=== PATIENT | male | born 1965 | race Caucasian/White ===

== ENCOUNTER 2016-09-23 20:50 | Emergency (ER) | payer OTHER ==
--- NOTE | 2016-09-23 21:09 | Emergency Department Record ---
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 The past 2 shifts he has taken off due to profuse diaphoresis, shaking chills and fevers with total body aching head to toe, and vertigo when he changes position. Today he noticed a reddened warm patch on the back of his dominant right hand which is tender. He denies any bites or stings to that area that he knows of, and has no discomfort up into his upper arm or axilla. He is an occasional smoker, and takes Metformin for type 2 diabetes, colchicine for gout. Onset/Timin -: Days(s) Location: Right, Hand History of Same: No Quality: Aching Consistency: Constant, Getting worse Improves with: Nothing Worsens with: Nothing - Related Data Home Medications Medication Instructions Recorded Confirmed Last Taken Colchicine [Colchicine] 1 tab PO ASDIR 09/23/16 09/23/16 Unknown Metformin HCl [Metformin HCl ER] 1,000 mg PO DAILY 09/23/16 09/23/16 Unknown Previous Rx's Medication Instructions Recorded Cephalexin [Keflex] 500 mg PO QID #40 cap 09/24/16 Allergies Allergy/AdvReac Type Severity Reaction Status Date / Time No Known Drug Allergies Allergy Verified 01/18/15 20:19 Travel Screening - Travel/Exposure Within Last 30 Days Have you traveled within the last 30 days?: No Review of Systems Reviewed: No additional complaints except as noted below Constitutional: Reports: As per HPI. Denies: Chills, Fever, Malaise, Night sweats, Weakness, Weight change Eyes: Reports: As per HPI. Denies: Eye discharge, Eye pain, Photophobia, Vision change ENT: Reports: As per HPI. Denies: Congestion, Dental pain, Ear pain, Epistaxis , Hearing loss, Throat pain Respiratory: Reports: As per HPI. Denies: Cough, Dyspnea, Hemoptysis, Stridor, Wheezes Cardiovascular: Reports: As per HPI. Denies: Arrhythmia, Chest pain, Dyspnea on exertion, Edema, Murmurs, Orthopnea, Palpitations, Paroxysmal nocturnal dyspnea, Rheumatic Fever, Syncope Endocrine: Reports: As per HPI. Denies: Fatigue, Heat or cold intolerance, Polydipsia, Polyuria Gastrointestinal: Reports: As per HPI. Denies: Abdominal pain, Constipation, Diarrhea, Hematemesis, Hematochezia, Melena, Nausea, Vomiting Genitourinary: Reports: As per HPI. Denies: Dysuria, Frequency, Hematuria, Incontinence, Retention, Testicular pain, Testicular mass, Urgency Musculoskeletal: Reports: As per HPI. Denies: Arthralgia, Back pain, Gout, Joint swelling, Myalgia, Neck pain Skin: Reports: As per HPI. Denies: Bruising, Change in color, Change in hair/ nails, Lesions, Pruritus, Rash Neurological: Reports: As per HPI. Denies: Abnormal gait, Confusion, Headache, Numbness, Paresthesias, Seizure, Tingling, Tremors, Vertigo, Weakness Psychiatric: Reports: As per HPI. Denies: Anxiety, Auditory hallucinations, Depression, Homicidal thoughts, Suicidal thoughts, Visual hallucinations Hematological/Lymphatic: Reports: As per HPI. Denies: Anemia, Blood Clots, Easy bleeding, Easy bruising, Swollen glands Past Medical History - SOCIAL HISTORY Smoking Status: Current some day smoker Alcohol Use: None Drug Use: None - RESPIRATORY Hx Respiratory Disorders: No - CARDIOVASCULAR Hx Cardio Disorders: Yes Hx Cardiac Cath: Yes Hx Heart Attack: Yes (x2) - NEURO Hx Neuro Disorders: No - GI Hx GI Disorders: No - Hx Genitourinary Disorders: No - ENDOCRINE Hx Endocrine Disorders: Yes Hx Diabetes: Yes (DM2) - MUSCULOSKELETAL Hx Musculoskeletal Disorders: Yes Hx Gout: Yes (hx) - PSYCH Hx Psych Problems: No - HEMATOLOGY/ONCOLOGY Hx Hematology/Oncology Disorders: No Family Medical History Any Significant Family History?: Yes Hx Cancer: Father *Cancer Comment: Leukemia Hx Diabetes: Mother, Brother/Sister Hx Heart Disease: Brother/Sister Hx Resp Disorders: Mother *Resp Comment: COPD Physical Exam - General General Appearance: Alert, Oriented x3, Cooperative, No acute distress - Head Head exam: Normal inspection - Eye Eye exam: Normal appearance, PERRL Pupils: Normal accommodation - ENT ENT exam: Normal exam, Mucous membranes moist, Normal external ear exam, Normal orophraynx, TM's normal bilaterally Ear exam: Normal external inspection. negative: External canal tenderness Nasal Exam: Normal inspection. negative: Discharge, Sinus tenderness Mouth exam: Normal external inspection, Tongue normal Teeth exam: Normal inspection. negative: Dental caries Throat exam: Normal inspection. negative: Tonsillar erythema, Tonsillar exudate - Neck Neck exam: Normal inspection, Full ROM. negative: Tenderness - Respiratory Respiratory exam: Normal lung sounds bilaterally. negative: Respiratory distress - Cardiovascular Cardiovascular Exam: Normal rhythm, Normal heart sounds, Tachycardia - GI/Abdominal GI/Abdominal exam: Soft, Normal bowel sounds. negative: Tenderness - Rectal Rectal exam: Deferred - exam: Deferred - Extremities Extremities exam: Normal inspection, Full ROM, Normal capillary refill. negative: Tenderness Image of Hand: 1 - erythema, warmth, tenderness to dorsal right hand, no proximal lymphangitis , no axillary lymph nodes palpable, no bite site or discrete lesions. - Back Back exam: Reports: Normal inspection, Full ROM. Denies: Muscle spasm, Rash noted, Tenderness - Neurological Neurological exam: Alert, Normal gait, Oriented X3, Reflexes normal - Psychiatric Psychiatric exam: Normal affect, Normal mood - Skin Skin exam: Dry, Intact, Normal color, Warm Course Vital Signs 09/23/16 20:56 Temperature 98.3 F Pulse Rate [ 110 H Pulse Ox Probe] Respiratory 20 Rate Blood Pressure 145/98 [Left Arm] Pulse Ox 96 - Reevaluation(s) Reevaluation #1: History obtained for cardiac risks when troponin returned 0.032. Patient states he had a heart attack in 2010, he smokes 2 cigarettes per day,, is a diabetic, type 2, has elevated cholesterol for which he does not take medication , and his FH is positive for a father who had multiple WI's in his 30's. He denies having any anterior chest pains this week, but does get left lateral rib "spasms" under his arm when at work and exerting himself, but not currently, and not today. 09/23/16 22:33 09/23/16 22:36 Reevaluation #2: Patient states he is feeling better. Fluids infused, antibiotics infused. Patient states he works two jobs of 12 hour night shifts and 8 hours days. He only sleeps on the weekends. He states its because he loves to work. Patient informed he will have repeat troponin drawn. 09/24/16 00:34 Medical Decision Making - Management Options MDM Management: No Additional Work-up Planned - Data Complexity MDM Data: Labs Ordered and/or Reviewed, X-Ray Ordered and/or Reviewed (CTA chest : No large central pulmonary emboli seen but small segmental subsegmental pulmonary emboli may bnot be detected with this exam. No acute cardiopulm findings. Mild bilateral hilar adenopathy. Old pulmonary granulomatous disease. Per [facility]. ), EKG Ordered and/or Reviewed (EKG: Sinus tach at 102, no acute abnormalities.) - Lab Data Result diagrams: 09/23/16 21:30 09/23/16 21:30 Disposition Disposition: Discharge Clinical Impression: Cellulitis of right hand excluding fingers and thumb Disposition: Home, Self-Care Instructions: Cellulitis (ED) Additional Instructions: Take oral antibiotics as directed until gone. No use of right hand until infection clears. Watch closely to see if redness moves outside the marked regions. If it does, return here for repeat IV antibiotics. Prescriptions: Cephalexin [Keflex] 500 mg PO QID #40 cap Forms: Patient Portal Access Quality - Quality Measures Quality Measures: N/A - Blood Pressure Screening Does Patient Have Any of the Following: No Blood Pressure Classification: Pre-Hypertensive BP Reading Systolic Measurement: 126 Diastolic Measurement: 68 Screening for High Blood Pressure: < Normal BP, F/U Not Required > [G8783]
[2016-09-23] MEDS ORDERED: 0.9 % SODIUM CHLORIDE 1,000 ML BAG IV ONE ×2 (21:19→22:38)
[2016-09-23 21:40] LABS: MEAN CORPUSCULAR HEMOGLOBIN 31.8 pg (27-33); MEAN CORPUSCULAR HGB CONC 35.7 g/dl (32-36); PLATELET COUNT 122 K/uL (130-400); RED BLOOD COUNT 4.72 M/uL (4.40-5.70); RED CELL DISTRIBUTION WIDTH 12.3 % (11.5-14.5); WHITE BLOOD COUNT W/O DIFF 2.7 K/uL (4.2-12.2)
[2016-09-23 21:54] LABS: LACTIC ACID 1.9 mmol/L (0.7-2.1)
[2016-09-23 21:56] LABS: INR 0.99; PROTHROMBIN TIME (PATIENT) 10.7 SECONDS (9.5-12.1)
[2016-09-23 21:57] LABS: D-DIMER 1.93 mg/L FEU (0-0.59)
[2016-09-23 22:12] LABS: ALB/GLOB RATIO 1.4 (1.1-1.8); BLOOD UREA NITROGEN 19 mg/dL (9-20); CREATININE 1.1 mg/dL (0.66-1.25); EST GLOMERULAR FILTRATION RATE > 60 ml/min; GLUCOSE,RANDOM 267 mg/dL (70-110); TOTAL PROTEIN 6.9 gm/dL (6.3-8.2)
[2016-09-23 22:13] LABS: ALKALINE PHOSPHATASE 64 U/L (38-126); ALT/SGPT 60 U/L (21-72); AST/SGOT 33 U/L (17-59)
[2016-09-23 22:14] LABS: TROPONIN I 0.032 ng/mL (0.00-0.034)
[2016-09-23] MEDS ORDERED: CEFAZOLIN 2 Gram 2 GM/50 ML BAG IVPB ONE (22:29)
[2016-09-23 23:17] LABS: URINE APPEARANCE CLEAR; URINE BILIRUBIN NEGATIVE (NEGATIVE); URINE BLOOD MODERATE (NEGATIVE); URINE COLOR YELLOW; URINE KETONE NEGATIVE (NEGATIVE); URINE LEUKOCYTE ESTERASE NEGATIVE (NEGATIVE); URINE NITRITE NEGATIVE (NEGATIVE); URINE PROTEIN NEGATIVE (NEGATIVE); URINE UROBILINOGEN 0.2 E.U./dL (0.20 - 1.00)
[2016-09-23 23:23] LABS: URINE GLUCOSE (UA) >=1000 mg/dL (NEGATIVE)
[2016-09-23 23:30] LABS: URINE AMORPHOUS SEDIMENT 1+; URINE EPITHELIAL CELLS 0 - 2 (FEW); URINE WBC 0 - 2 (0-2/hpf)
[2016-09-24] MEDS ORDERED: CEPHALEXIN 500 MG CAPSULE PO STA (02:43)
--- NOTE | 2016-09-24 12:33 | RADIOLOGY REPORT ---
EXAM: CHEST HISTORY: RIGHT HAND SWELLING NOTICED ON THE POSTERIOR SIDE OF THE HAND. VERTIGO, FEVER AND CHILLS. TECHNIQUE: Two views of the chest were obtained. Comparison: None. FINDINGS: The heart is not enlarged. No mediastinal mass. No infiltrate or vascular congestion. IMPRESSION: UNREMARKABLE CHEST EXAMINATION. JOB NUMBER: [id number] MTDD
--- NOTE | 2016-09-24 12:58 | CT ANGIOGRAM REPORT ---
EXAM: CTA OF THE CHEST HISTORY: ELEVATED D-DIMER, SWOLLEN HANDS, HISTORY OF DIABETES. TECHNIQUE: Contiguous axial images from the thoracic inlet to the upper abdomen were obtained after the uneventful intravenous administration of 78 ml of Omnipaque 350. Sagittal and coronal two dimensional MIP as well as 3D/MIP reformatted images were obtained for better anatomic delineation. Comparison: Chest x-ray 09/23/16. FINDINGS: There are two right middle lobe nodules measuring up to 4.5 mm in size. Plaque like nodule at the right lower lobe posteriorly measuring 4.7 mm. Additional right lower lobe nodule posteriorly measures 4 mm. At least two juxtapleural nodules in the left lower lobe measuring up to 4 mm. The heart is not enlarged and there is no pericardial effusion. No enlarged lymph nodes in the thorax. The pulmonary arteries are not optimally opacified. Allowing for this no obvious pulmonary embolism identified. No thoracic aortic aneurysm or thoracic aortic dissection. There are a few subcentimeter cysts in the liver. The remaining upper abdomen is unremarkable. No lytic or blastic osseous lesion. There is a calcified 2 mm nodule in the right middle lobe as well as calcified 3 mm nodule in the left lower lobe. IMPRESSION: 1. SUBOPTIMAL OPACIFICATION OF THE PULMONARY ARTERIES. NO OBVIOUS PULMONARY EMBOLISM IDENTIFIED. NO THORACIC AORTIC DISSECTION. 2. MULTIPLE LUNG NODULES ALL OF WHICH MEASURE LESS THAN 6 MM. GIVEN THE PRESENCE OF NUMEROUS CALCIFIED NODULES AND THE EVIDENCE OF OLD GRANULOMATOUS DISEASE, THE NODULES ARE LIKELY BENIGN AND NO FOLLOW-UP IS NECESSARY ACCORDING TO THE 2017 FLEISCHNER CRITERIA. 3. BENIGN HEPATIC CYSTS. JOB NUMBER: [id number] MTDD
== END 2016-09-24 03:01 | disposition home or self-care (01) ==
LOC: ER 20:50
DX: E11.628 Type 2 diabetes mellitus with other skin complications (principal); L03.113 Cellulitis of right upper limb; R79.89 Other specified abnormal findings of blood chemistry; R42 Dizziness and giddiness; R50.81 Fever presenting with conditions classified elsewhere; I25.2 Old myocardial infarction; Z79.84 Long term (current) use of oral hypoglycemic drugs
CPT/HCPCS: 99284 ×2; 96365; 83605; 85610; 83874; 84484; 80053; 81001; 85379; 85027; 71020; 71275; 93005; 93010; Q9967; J0690

== ENCOUNTER 2019-03-07 05:14 | Emergency (ER) | payer OTHER ==
--- NOTE | 2019-03-07 05:50 | Emergency Department Record ---
History of Present Illness - General Chief complaint: Cold Stated complaint: COUGH, CONGESTION Time Seen by Provider: 03/07/19 05:37 Source: Patient Mode of Arrival: Ambulatory Limitations: No limitations - History of Present Illness Initial comments: pt has been sick for 2 wks w yellow productive cough and yellow congestion. pt has sweats and his stomach is sore from coughing MD complaint: Other Onset/Timin -: Week(s) Severity: Mild Quality: Aching Consistency: Constant Improves with: Other medication Associated Symptoms: Cough, Rhinorrhea - Related Data Previous Rx's Medication Instructions Recorded Azithromycin [Zithromax] 250 mg PO DAILY #6 tab 03/07/19 Benzonatate [Tessalon] 1 cap PO Q8H PRN #10 cap 03/07/19 Allergies Allergy/AdvReac Type Severity Reaction Status Date / Time No Known Drug Allergies Allergy Verified 01/18/15 20:19 Travel Screening - Travel/Exposure Within Last 30 Days Have you traveled within the last 30 days?: No - Travel/Exposure Within Last Year Have you traveled outside the [place] in the last year?: No - Additonal Travel Details Have you been exposed to anyone with a communicable illness?: No - Travel Symptoms Symptom Screening: None Review of Systems Reviewed: No additional complaints except as noted below Constitutional: Reports: As per HPI. Denies: Chills, Fever, Malaise, Night sweats, Weakness, Weight change Eyes: Reports: As per HPI. Denies: Eye discharge, Eye pain, Photophobia, Vision change ENT: Reports: As per HPI, Congestion. Denies: Dental pain, Ear pain, Epistaxis, Hearing loss, Throat pain Respiratory: Reports: As per HPI, Cough. Denies: Dyspnea, Hemoptysis, Stridor, Wheezes Cardiovascular: Reports: As per HPI. Denies: Arrhythmia, Chest pain, Dyspnea on exertion, Edema, Murmurs, Orthopnea, Palpitations, Paroxysmal nocturnal dyspnea, Rheumatic Fever, Syncope Endocrine: Reports: As per HPI. Denies: Fatigue, Heat or cold intolerance, Polydipsia, Polyuria Gastrointestinal: Reports: As per HPI. Denies: Abdominal pain, Constipation, Diarrhea, Hematemesis, Hematochezia, Melena, Nausea, Vomiting Genitourinary: Reports: As per HPI. Denies: Dysuria, Frequency, Hematuria, Incontinence, Retention, Testicular pain, Testicular mass, Urgency Musculoskeletal: Reports: As per HPI. Denies: Arthralgia, Back pain, Gout, Joint swelling, Myalgia, Neck pain Skin: Reports: As per HPI. Denies: Bruising, Change in color, Change in hair/nails, Lesions, Pruritus, Rash Neurological: Reports: As per HPI. Denies: Abnormal gait, Confusion, Headache, Numbness, Paresthesias, Seizure, Tingling, Tremors, Vertigo, Weakness Psychiatric: Reports: As per HPI. Denies: Anxiety, Auditory hallucinations, Depression, Homicidal thoughts, Suicidal thoughts, Visual hallucinations Hematological/Lymphatic: Reports: As per HPI. Denies: Anemia, Blood Clots, Easy bleeding, Easy bruising, Swollen glands Past Medical History - SOCIAL HISTORY Smoking Status: Current some day smoker Alcohol Use: Occasional Drug Use: None - RESPIRATORY Hx Respiratory Disorders: No - CARDIOVASCULAR Hx Cardio Disorders: Yes Hx Cardiac Cath: Yes Hx Heart Attack: Yes (x2) Hx Hypertension: Yes - NEURO Hx Neuro Disorders: No - GI Hx GI Disorders: No - Hx Genitourinary Disorders: No - ENDOCRINE Hx Endocrine Disorders: Yes Hx Diabetes: Yes (DM2) - MUSCULOSKELETAL Hx Musculoskeletal Disorders: Yes Hx Gout: Yes (hx) - PSYCH Hx Psych Problems: No - HEMATOLOGY/ONCOLOGY Hx Hematology/Oncology Disorders: No Family Medical History Any Significant Family History?: Yes Hx Cancer: Father *Cancer Comment: Leukemia Hx Diabetes: Mother, Brother/Sister Hx Heart Disease: Brother/Sister Hx Resp Disorders: Mother *Resp Comment: COPD Physical Exam - General General Appearance: Alert, Oriented x3, Cooperative, Mild distress - Head Head exam: Normal inspection - Eye Eye exam: Normal appearance, PERRL, EOMI Pupils: Normal accommodation - ENT ENT exam: Normal exam, Mucous membranes moist, Normal external ear exam, Normal orophraynx Ear exam: Normal external inspection. negative: External canal tenderness Nasal Exam: Normal inspection. negative: Discharge, Sinus tenderness Mouth exam: Normal external inspection, Tongue normal Teeth exam: Normal inspection. negative: Dental caries Throat exam: Normal inspection. negative: Tonsillar erythema, Tonsillar exudate - Neck Neck exam: Normal inspection, Full ROM. negative: Tenderness - Respiratory Respiratory exam: Normal lung sounds bilaterally. negative: Respiratory distress - Cardiovascular Cardiovascular Exam: Regular rate, Normal rhythm, Normal heart sounds - GI/Abdominal GI/Abdominal exam: Soft, Normal bowel sounds. negative: Tenderness - Rectal Rectal exam: Deferred - exam: Deferred - Extremities Extremities exam: Normal inspection, Full ROM, Normal capillary refill. negative: Tenderness - Back Back exam: Reports: Normal inspection, Full ROM. Denies: Muscle spasm, Rash noted, Tenderness - Neurological Neurological exam: Alert, CN II-XII intact, Normal gait, Oriented X3 - Psychiatric Psychiatric exam: Normal affect, Normal mood - Skin Skin exam: Dry, Intact, Normal color, Warm Course Vital Signs 03/07/19 05:22 Temperature 98.0 F Pulse Rate 80 Respiratory 24 Rate Pulse Ox 97 Disposition Disposition: Discharge Clinical Impression: Bronchitis Disposition: Home, Self-Care Condition: (1) Good Instructions: Acute Bronchitis (ED) Additional Instructions: follow up with family doctor. return sooner if worse Prescriptions: Benzonatate [Tessalon] 1 cap PO Q8H PRN #10 cap PRN Reason: Cough Azithromycin [Zithromax] 250 mg PO DAILY #6 tab Forms: Patient Portal Access, Return to Work/School Quality - Quality Measures Quality Measures: N/A - Blood Pressure Screening Does Patient Have Any of the Following: No Blood Pressure Classification: Hypertensive Reading Systolic Measurement: 140 Diastolic Measurement: 98 Screening for High Blood Pressure: < First Hypertensive BP, F/U Documented > [G8950] First Hypertensive Follow-up Interventions: Follow-up with rescreen GT 1 day and LT 4 weeks.
[2019-03-07 06:04] LABS: INFLUENZA A NEGATIVE (NEGATIVE); INFLUENZA B NEGATIVE (NEGATIVE)
--- NOTE | 2019-03-07 06:06 | RADIOLOGY REPORT ---
EXAMINATION: Two View Chest Radiographs EXAM DATE: 03/07/2019 6:00 AM TECHNIQUE: Frontal and lateral views INDICATION: cough COMPARISON: 09/23/2016 ENCOUNTER: Not applicable FINDINGS: Cardiomediastinal structures stable. No pulmonary consolidation or infiltration. No pneumothorax or p leural effusion. IMPRESSION: No acute abnormality Dictated by: Matty Kolb MD on 03/07/2019 6:01 AM. .
== END 2019-03-07 06:35 | disposition home or self-care (01) ==
LOC: ER 05:14
DX: J20.9 Acute bronchitis, unspecified (principal); I10 Essential (primary) hypertension; I25.2 Old myocardial infarction; E11.9 Type 2 diabetes mellitus without complications; F17.210 Nicotine dependence, cigarettes, uncomplicated
CPT/HCPCS: 71046; 87400; 99283